=== PATIENT | male | born 2000 | race Caucasian/White ===

== ENCOUNTER 2023-10-04 23:14 | Emergency (ER) | payer SELFPAY ==
[~2023-10-04] VITALS: Ht 170.2 cm; Wt 96.2 kg
[2023-10-04 23:32] VITALS: BP 160/84; PULSE 88; RESP 16; TEMP 99; O2SAT 97
[2023-10-05] MEDS ORDERED: AMOX1TAB16 MT (00:43)
[2023-10-05] MEDS ORDERED: KETOROLAC 60MG/2ML VIAL IM ONE (00:45)
== END 2023-10-05 02:00 | disposition left against medical advice (07) ==
LOC: ER 23:14
DX: H66.91 Otitis media, unspecified, right ear (principal); R51.9 Headache, unspecified
CPT/HCPCS: 99281; 99283